=== PATIENT | female | born 1955 | race Caucasian/White ===

== ENCOUNTER → 2021-07-16 | Outpatient (CLI) | payer MEDICARE ==
--- NOTE | 2021-07-16 11:37 | DEXAMM ---
INDICATION: AROMATASE INHIBITOR USE. COMPARISON: June 09, 2011. TECHNIQUE: Bone density was measured using dual-energy x-ray absorptionmetry (DEXA). FINDINGS: AP SPINE L1-L4 BMD 1.078 g/cm2 Young Adult T-Score -0.9 Age Matched Z-Score 0.7. LT FEMUR, TOTAL BMD 0.814 g/cm2 Young Adult T-Score -1.5 Age Matched Z-Score -0.3. LT NECK BMD 0.893 g/cm2 Young Adult T-Score -1.0 Age Matched Z-Score 0.5. RT FEMUR, TOTAL BMD 0.771 g/cm2 Young Adult T-Score -1.9 Age Matched Z-Score -0.6. RT NECK BMD 0.775 g/cm2 Young Adult T-Score -1.9 Age Matched Z-Score -0.4. IMPRESSION: There is normal bone density of the spine. There is low bone density of the left hip. There is low bone density of the right hip. The density of the spine has decreased 2.7% since the initial exam on June 09, 2011. The density of the left hip has decreased 5.1% since the initial exam on June 09, 2011. The density of the right hip has decreased 10.1% since the initial exam on June 09, 2011. FOLLOW-UP: Recommendation for the next bone density exam: 2 years. <Electronically signed by Omero Pena > 07/16/21 [id number]
== END ==
LOC: M WHC 10:14
PROVIDERS: ATTEND Internal Medicine Hematology & Oncology
DX: Z79.811 Long term (current) use of aromatase inhibitors (principal)

== ENCOUNTER → 2021-08-13 | Outpatient (CLI) | payer MEDICARE ==
--- NOTE | 2021-08-13 16:24 | RADONC.CN ---
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 She is s/p lumpectomy and SLNB on 07/27/[address] Frias. She is seen today at the request of Dr. Mcrae for consideration of adjuvant RT [id number]. Diagnosis/Treatment History Oncologic History ADH left breast [address] [facility] for screening mammograms and MRI 06/05/21 Screening MRI showed 9 mm mass in the upper outer right breast 07/01/21 US no correlate 07/01/21 MRI biopsy showing ILC grade 2 ER/NH+ HER2- 07/27/21 Lumpectomy and SLNB pT1bN0(sn)M0 small focus of LCIS, margins widely negative Breast history: 1st @ 23 Menses @ 12 Menopause @ 48 No OCP No HRT No IVF Interval History Here with her . Has some occasional right arm pain, absent swelling. No impairment in ROM. She has some residual tenderness in the right breast and axilla as well. Appetite good and weight stable. No COVID vaccine, this was delayed by her BC workup. Past Medical History: Fibromyalgia AHD Dense breasts Past Surgical History: Tubal ligation 1981 Breast biopsy left 2010 Family History: Mother breast cancer Social History: Never smoker Never drinker Allergies / Meds Home Meds No Active Prescriptions or Reported Meds Review of Systems Constitutional: Denies: Fatigue, Weight Loss Eyes: Denies: Pain HEENT: Denies: Head Aches Skin: Denies: Rash Pulmonary: Denies: Dyspnea, Cough Cardiovascular: Denies: Chest Pain, Palpitations Breast: Reports: Breast Pain or Tenderness; Denies: New Breast Lumps / Masses, Nipple Retraction, Nipple Discharge, Breast Skin Changes Gastrointestinal: Denies: Abdominal Pain Musculoskeletal: Denies: Neck pain, Arm pain Neurological: Denies: Weakness, Numbness Psych: Reports: Mood Normal Vital Signs Wt 181 lbs T96.7 P 74 RR 16 BP 135/82 O2 97% Pain 4 (breast) Fatigue 1 General Exam: Alert, Cooperative, No Acute Distress Eye Exam: PERRLA, EOMI ENT EXAM: Atraumatic Neck Exam: Supple; Negative: Lymphadenopathy Chest Exam: Clear to auscultation Heart Exam: Rate Normal Breast Exam: Symmetric Bilaterally, Skin Changes (Mild bruising and dependent edema right breast. Lower outer portion is tender with palpable seroma); Negative: Lumps or Masses, Nipple Retraction, Nipple Discharge Abdomen Exam: Soft Extremity Exam: Negative: Edema Skin Exam: Nl turgor and temperature Neuro Exam: Normal Gait, Normal Speech, Cranial Nerves 3-12 NL Psych Exam: Mental status NL Diagnostic and Laboratory Diagnostic Review Radiologic images, relevant labs and pathology reports were personally reviewed and discussed with Ms. Oseguera. Assessment and Plan Impression Ms. 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 She is s/p lumpectomy and SLNB on 07/27/[address] Frias. She is seen today at the request of Dr. Mcrae for consideration of adjuvant RT [id number]. 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 Oseguera regarding the diagnosis at hand and available therapeutic options. She is healing well from surgery with some residual tenderness that should resolve in the coming weeks. She previously discussed right whole breast RT with Dr. Mcrae. I offered her the same regimen or the alternative of hypofractionated partial breast RT per the IMPORT LOW trial, 40 Gy in 15 fractions with 3D planning and daily CBCT for localization. Her lobular histology renders this alternative treatment option conditional per [facility]'s APBI guidelines, but the tumor was small and margins were widely negative in any event, she is also approaching 70 years old, all these considerations I explained render PBI a reasonable alternative to hypofractionated WBI with entirely similar local control rates and improved acute and late toxicity profiles with PBI. She favors the PBI approach and would like to proceed thus. We discussed the logistics of receiving radiation therapy in detail including the need for a 1-time planning session. This can occur in the next 1-2 weeks. We reviewed the side effects of RT including fatigue, skin reaction and late fibrosis. After discussing the risks, benefits and alternatives to radiation therapy, Ms. Oseguera was amenable to pursuing radiotherapy. All questions were answered to the patient's satisfaction. We instructed the patient that if there were any questions,concerns or changes in clinical status in the interim to contact us. Recommendations Hypofractionated PBI 40 Gy in 15 fractions Simulation in the next 1-2 weeks Billing Statement Total time of [46] minutes was spent preparing for the visit [3], obtaining HPI [10], examining the patient [5], reviewing diagnostic tests [3], discussing management options [14], coordinating care [3], and writing this note [8]. ELAINE DALAL MD Aug 13, 2021 16:24
== END ==
LOC: M ONCR 13:53
PROVIDERS: ATTEND General Practice
DX: C50.911 Malignant neoplasm of unspecified site of right female breast (principal)

== ENCOUNTER → 2021-09-08 | Outpatient (RCR) | payer MEDICARE ==
[~2021-09-08] MED LIST: CALC1TAB86 PO; NO ITAB PO
== END ==
LOC: M ONCR 08-24 13:46
PROVIDERS: ATTEND General Practice
DX: C50.511 Malignant neoplasm of lower-outer quadrant of right female breast (principal)

== ENCOUNTER 2021-09-15 08:11 | Outpatient (RCR) | payer MEDICARE | END 2021-10-09 | LOC: M PT 08:11 | PROVIDERS: ATTEND General Practice | DX: I89.0 Lymphedema, not elsewhere classified (principal) ==

== ENCOUNTER 2021-09-28 09:37 | Outpatient (RCR) | payer MEDICARE | END 2021-10-09 | LOC: M ONCR 09:37 | PROVIDERS: ATTEND General Practice | DX: C50.511 Malignant neoplasm of lower-outer quadrant of right female breast (principal) ==

== ENCOUNTER → 2022-03-31 | Outpatient (CLI) | payer MEDICARE | LOC: M ONCR 10:22 | PROVIDERS: ATTEND General Practice | DX: C50.511 Malignant neoplasm of lower-outer quadrant of right female breast (principal); R22.2 Localized swelling, mass and lump, trunk; R23.2 Flushing; Z92.21 Personal history of antineoplastic chemotherapy; Z92.3 Personal history of irradiation; Z79.811 Long term (current) use of aromatase inhibitors ==

== ENCOUNTER → 2022-09-30 | Outpatient (CLI) | payer MEDICARE | LOC: M ONCR 10:13 | PROVIDERS: ATTEND General Practice | DX: Z08 Encounter for follow-up examination after completed treatment for malignant neoplasm (principal); Z85.3 Personal history of malignant neoplasm of breast; Z92.3 Personal history of irradiation; I89.0 Lymphedema, not elsewhere classified ==

== ENCOUNTER → 2023-03-31 | Outpatient (CLI) | payer MEDICARE | LOC: M ONCR 10:06 | PROVIDERS: ATTEND General Practice | DX: Z08 Encounter for follow-up examination after completed treatment for malignant neoplasm (principal); Z85.3 Personal history of malignant neoplasm of breast; Z71.2 Person consulting for explanation of examination or test findings; Z92.3 Personal history of irradiation ==

== ENCOUNTER → 2023-06-16 | Outpatient (CLI) | payer MEDICARE ==
[2023-06-16 16:33] LABS: ALBUMIN 3.7 G/DL (3.2-5.2); ALKALINE PHOSPHATASE 58 U/L (46-116); ALT/SGPT 23 U/L (7.0-40); AST/SGOT 15 U/L (<34); BILIRUBIN,TOTAL 0.3 MG/DL (0.3-1.2); BLOOD UREA NITROGEN 16 MG/DL (9-23); CALCIUM LEVEL 9.3 MG/DL (8.3-10.6); CARBON DIOXIDE LEVEL 28 MMOL/L (20-31); CHLORIDE LEVEL 106 MMOL/L (98-107); GLOMERULAR FILTRATION RATE > 60.0 (>45); GLUCOSE, FASTING 87 MG/DL (74-106); POTASSIUM SERUM 4.3 MMOL/L (3.5-5.1); SODIUM LEVEL 142 MMOL/L (136-145); TOTAL PROTEIN 6.3 G/DL (5.7-8.2)
== END ==
LOC: M LAB 14:53
PROVIDERS: ATTEND General Practice
DX: C50.511 Malignant neoplasm of lower-outer quadrant of right female breast (principal)

== ENCOUNTER → 2023-06-22 | Outpatient (CLI) | payer MEDICARE ==
[~2023-06-22] MED LIST changes: +PROHANCE 279.3MG/ML 15ML VIAL As Ordered ONE
== END ==
LOC: M RAD 10:29
PROVIDERS: ATTEND General Practice
DX: C50.511 Malignant neoplasm of lower-outer quadrant of right female breast (principal)
CPT/HCPCS: A9576; C8908

== ENCOUNTER → 2024-03-30 | Outpatient (CLI) | payer MEDICARE ==
[~2024-03-30] MED LIST changes: -PROHANCE 279.3MG/ML 15ML VIAL As Ordered ONE
== END ==
LOC: M ONCR 09:47
PROVIDERS: ATTEND General Practice
DX: Z08 Encounter for follow-up examination after completed treatment for malignant neoplasm (principal); Z85.3 Personal history of malignant neoplasm of breast; Z92.3 Personal history of irradiation; Z71.2 Person consulting for explanation of examination or test findings

== ENCOUNTER → 2024-06-25 | Outpatient (CLI) | payer MEDICARE ==
[~2024-06-25] MED LIST changes: +PROHANCE 279.3MG/ML 15ML VIAL As Ordered ONE
== END ==
LOC: M RAD 12:33
PROVIDERS: ATTEND Radiology Radiation Oncology
DX: Z85.3 Personal history of malignant neoplasm of breast (principal)
CPT/HCPCS: A9576; C8908

== ENCOUNTER 2024-09-22 23:58 | Emergency (ER) | payer MEDICARE ==
[~2024-09-22] VITALS: Ht 172.7 cm; Wt 79.5 kg
[~2024-09-22 23:58] MED LIST changes: -PROHANCE 279.3MG/ML 15ML VIAL As Ordered ONE
[2024-09-23 00:02] VITALS: BP 164/98; TEMP 97.9; O2SAT 99
== END 2024-09-23 | disposition home or self-care (01) ==
LOC: M ED 09-23 02:36
DX: Z53.21 Procedure and treatment not carried out due to patient leaving prior to being seen by health care provider (principal)